=== PATIENT | male | born 1945 | race Caucasian/White ===

== ENCOUNTER 2021-04-27 14:22 | Inpatient (IN) ==
[2021-04-27] MEDS ORDERED: D5% in Water 1,000 ML IVC PRN (18:41)
[2021-04-27] MEDS ORDERED: Naloxone 0.4 MG/ML INJ IVP PRN (18:42)
[2021-04-27] MEDS ORDERED: Dextrose Gel 15 GM/37.5 ML TUBE PO PRN ×2 (20:46)
[2021-04-27] MEDS ORDERED: *HR* Dextrose 50 % in Water (Syg) 50 ML SYRINGE IVP PRN (20:47)
[2021-04-27] MEDS ORDERED: Insulin LISPRO 300 UNITS/3 ML VIAL SUBQ SCH (21:00)
[2021-04-28] MEDS ORDERED: Insulin LISPRO 300 UNITS/3 ML VIAL SUBQ SCH (07:30)
[2021-04-28] MEDS: Multivit/Ca/Min/Fe/FA 1 TAB TABLET PO SCH (09:44)
[2021-04-28] MEDS: Aspirin 81 MG TAB.CHEW PO SCH (09:44)
[2021-04-28] MEDS: amLODIPine 5 MG TABLET PO SCH (09:44)
[2021-04-28] MEDS ORDERED: *HR* Dextrose 50 % in Water (Syg) 50 ML SYRINGE IVP PRN (11:54)
[2021-04-28] MEDS ORDERED: Dextrose Gel 15 GM/37.5 ML TUBE PO PRN ×2 (11:54)
[2021-04-28] MEDS ORDERED: D5% in Water 1,000 ML IVC PRN (11:54)
[2021-04-28] MEDS: Insulin LISPRO 300 UNITS/3 ML VIAL SUBQ SCH ×2 (17:20→21:19)
[2021-04-29] MEDS: *HR* Enoxaparin 40 MG/0.4 ML SYRINGE SQ SCH (05:59)
[2021-04-29 06:17] LABS: Basophils % 0.4 %; Eosinophils # 0.2 K/mcL (0.0-0.6); Eosinophils % 3.3 %; Hematocrit 30.7 % (37.5-50.1); Hemoglobin 10.2 g/dL (12.9-16.9); Immature Granulocytes % 0.6 % (0-4); Lymphocytes # 1.6 K/mcL (0.6-4.6); Lymphocytes % 23.4 %; Mean Corpuscular HGB Conc 33.2 g/dL (31.6-35.5); Mean Corpuscular Hemoglobin 29.8 pg (28.0-33.3); Mean Corpuscular Volume 89.8 fL (83.0-100.0); Mean Platelet Volume 10.1 fL (9.4-12.4); Monocytes # 0.9 K/mcL (0.0-1.3); Monocytes % 13.8 %; Neutrophils # 3.9 K/mcL (1.6-8.9); Platelet Count 247 K/mcL (140-400); Red Blood Count 3.42 M/mcL (4.19-5.50); Red Cell Distribution Width 13.8 % (11.5-14.5); Segmented Neutrophils % 58.5 %; White Blood Count 6.7 K/mcL (4.3-11.1)
[2021-04-29 06:33] LABS: BUN/Creatinine Ratio 13 (6-26); Blood Urea Nitrogen 17 mg/dL (8-23); Calcium 8.9 mg/dL (8.6-10.3); Carbon Dioxide 25 mEq/L (23-29); Chloride 106 mEq/L (98-107); Glucose 146 mg/dL (70-105); Osmolality,Calculated 292 (280-300); Potassium 4.3 mEq/L (3.5-5.1); Sodium 139 mEq/L (136-145); eGFR For African Americans > 60 (> 60); eGFR For Non-African Americans 52 (> 60)
[2021-04-29 09:06] LABS: % Iron Saturation 19 % (20-55); Iron 43 mcg/dL (65-175); Transferrin 158 mg/dL (203-362)
[2021-04-29 09:37] LABS: Folate > 22.3 ng/mL (3.0-16.0); Vitamin B12 323 pg/mL (250-1100)
[2021-04-29] MEDS ORDERED: Acetaminophen 325 MG TABLET PO PRN (10:15)
[2021-04-29] MEDS: Multivit/Ca/Min/Fe/FA 1 TAB TABLET PO SCH (10:16)
[2021-04-29] MEDS: Aspirin 81 MG TAB.CHEW PO SCH (10:17)
[2021-04-29] MEDS: amLODIPine 5 MG TABLET PO SCH (10:17)
[2021-04-29 10:31] LABS: Estimated Average Glucose 177 mg/dl; Hemoglobin A1C 7.8 %
[2021-04-29] MEDS: Insulin LISPRO 300 UNITS/3 ML VIAL SUBQ SCH ×4 (10:42→20:56)
[2021-04-30] MEDS: *HR* Enoxaparin 40 MG/0.4 ML SYRINGE SQ SCH (05:36)
[2021-04-30 06:44] LABS: Basophils % 0.3 %; Eosinophils # 0.2 K/mcL (0.0-0.6); Eosinophils % 3.6 %; Hemoglobin 9.8 g/dL (12.9-16.9); Immature Granulocytes % 0.7 % (0-4); Lymphocytes # 1.7 K/mcL (0.6-4.6); Mean Corpuscular HGB Conc 32.7 g/dL (31.6-35.5); Mean Corpuscular Volume 91.7 fL (83.0-100.0); Mean Platelet Volume 10.2 fL (9.4-12.4); Monocytes # 0.9 K/mcL (0.0-1.3); Platelet Count 240 K/mcL (140-400); Red Blood Count 3.27 M/mcL (4.19-5.50); Red Cell Distribution Width 13.9 % (11.5-14.5); Segmented Neutrophils % 51.4 %; White Blood Count 5.8 K/mcL (4.3-11.1)
[2021-04-30 07:18] LABS: Calcium 8.9 mg/dL (8.6-10.3); Magnesium 1.6 mg/dL (1.6-2.6); Potassium 4.4 mEq/L (3.5-5.1)
[2021-04-30] MEDS: Insulin LISPRO 300 UNITS/3 ML VIAL SUBQ SCH ×3 (08:01→16:43)
[2021-04-30] MEDS: Multivit/Ca/Min/Fe/FA 1 TAB TABLET PO SCH (10:37)
[2021-04-30] MEDS: amLODIPine 5 MG TABLET PO SCH (10:37)
[2021-04-30] MEDS: Aspirin 81 MG TAB.CHEW PO SCH (10:38)
[2021-04-30] MEDS ORDERED: *HR* Dextrose 50 % in Water (Syg) 50 ML SYRINGE IVP PRN ×2 (12:07→14:47)
[2021-04-30] MEDS ORDERED: Dextrose Gel 15 GM/37.5 ML TUBE PO PRN ×4 (12:07→14:47)
[2021-04-30] MEDS ORDERED: D5% in Water 1,000 ML IVC PRN ×2 (12:07→14:47)
[2021-04-30] MEDS ORDERED: 0.9 % Sodium Chloride 1,000 ML IVC SCH (12:15)
[2021-04-30] MEDS ORDERED: Insulin LISPRO 300 UNITS/3 ML VIAL SUBQ SCH ×4 (16:30→21:00)
[2021-04-30] MEDS ORDERED: Insulin DETEMIR 100 UNIT/ML X5UNITS SUBQ SCH (21:00)
[2021-05-01] MEDS: *HR* Enoxaparin 40 MG/0.4 ML SYRINGE SQ SCH (05:29)
[2021-05-01 07:13] LABS: Basophils % 0.3 %; Eosinophils # 0.3 K/mcL (0.0-0.6); Eosinophils % 4.5 %; Hematocrit 30.9 % (37.5-50.1); Hemoglobin 10.1 g/dL (12.9-16.9); Immature Granulocytes % 0.6 % (0-4); Lymphocytes # 1.7 K/mcL (0.6-4.6); Lymphocytes % 27.9 %; Mean Corpuscular HGB Conc 32.7 g/dL (31.6-35.5); Mean Corpuscular Volume 91.7 fL (83.0-100.0); Mean Platelet Volume 9.1 fL (9.4-12.4); Monocytes # 0.9 K/mcL (0.0-1.3); Monocytes % 13.8 %; Neutrophils # 3.3 K/mcL (1.6-8.9); Platelet Count 229 K/mcL (140-400); Red Blood Count 3.37 M/mcL (4.19-5.50); Segmented Neutrophils % 52.9 %; White Blood Count 6.2 K/mcL (4.3-11.1)
[2021-05-01 07:28] LABS: Potassium 4.6 mEq/L (3.5-5.1)
[2021-05-01 08:14] VITALS: BP 156/67; PULSE 62; RESP 16; TEMP 97.6; O2SAT 95
[2021-05-01] MEDS: amLODIPine 5 MG TABLET PO SCH (08:26)
[2021-05-01] MEDS: Multivit/Ca/Min/Fe/FA 1 TAB TABLET PO SCH (08:26)
[2021-05-01] MEDS: Aspirin 81 MG TAB.CHEW PO SCH (08:26)
[2021-05-01] MEDS: Insulin LISPRO 300 UNITS/3 ML VIAL SUBQ SCH ×2 (08:27→12:43)
[2021-05-01] MEDS ORDERED: Insulin DETEMIR 100 UNIT/ML X5UNITS SUBQ SCH (09:00)
[2021-05-03] MEDS ORDERED: Ergocalciferol (VIT D2) 50,000 UNIT (1.25MG) CAP PO SCH (18:00)
== END 2021-05-01 13:33 | disposition other institution (70) ==
LOC: INPPIK
PROVIDERS: ADMIT Family Medicine; ATTEND Family Medicine

== ENCOUNTER 2021-05-01 11:29 | Inpatient (IN) ==
[2021-05-01] MEDS ORDERED: *HR* Dextrose 50 % in Water (Syg) 50 ML SYRINGE IVP PRN (12:41)
[2021-05-01] MEDS ORDERED: D5% in Water 1,000 ML IVC PRN (12:41)
[2021-05-01] MEDS ORDERED: Dextrose Gel 15 GM/37.5 ML TUBE PO PRN ×2 (12:41)
[2021-05-01] MEDS: Insulin LISPRO 300 UNITS/3 ML VIAL SUBQ SCH ×2 (17:24→20:24)
[2021-05-02] MEDS: *HR* Enoxaparin 40 MG/0.4 ML SYRINGE SQ SCH (05:32)
[2021-05-02 08:29] LABS: Calcium 9.2 mg/dL (8.6-10.3); Potassium 4.8 mEq/L (3.5-5.1)
[2021-05-02 09:39] LABS: Hematocrit 32.5 % (37.5-50.1); Hemoglobin 10.5 g/dL (12.9-16.9); Mean Corpuscular HGB Conc 32.3 g/dL (31.6-35.5); Mean Corpuscular Hemoglobin 29.7 pg (28.0-33.3); Mean Corpuscular Volume 92.1 fL (83.0-100.0); Mean Platelet Volume 11.1 fL (9.4-12.4); Neutrophils # 3.4 K/mcL (1.6-8.9); Platelet Count 267 K/mcL (140-400); Red Blood Count 3.53 M/mcL (4.19-5.50); Red Cell Distribution Width 14.1 % (11.5-14.5); Segmented Neutrophils % 53.3 %; White Blood Count 6.3 K/mcL (4.3-11.1)
[2021-05-02 09:40] LABS: Basophils % 0.3 %; Eosinophils # 0.3 K/mcL (0.0-0.6); Eosinophils % 4.4 %; Immature Granulocytes % 0.9 % (0-4); Lymphocytes # 1.7 K/mcL (0.6-4.6); Lymphocytes % 27.5 %; Monocytes # 0.9 K/mcL (0.0-1.3); Monocytes % 13.6 %
[2021-05-02] MEDS: Insulin LISPRO 300 UNITS/3 ML VIAL SUBQ SCH ×4 (10:03→20:18)
[2021-05-02] MEDS: Multivit/Ca/Min/Fe/FA 1 TAB TABLET PO SCH (10:04)
[2021-05-02] MEDS: amLODIPine 5 MG TABLET PO SCH (10:04)
[2021-05-02] MEDS: Aspirin 81 MG TAB.CHEW PO SCH (10:04)
[2021-05-02] MEDS: GlipiZIDE 5 MG TABLET PO SCH ×2 (10:04→17:21)
[2021-05-03] MEDS ORDERED: Ergocalciferol (VIT D2) 50,000 UNIT (1.25MG) CAP PO SCH (09:00)
[2021-05-03] MEDS: *HR* Enoxaparin 40 MG/0.4 ML SYRINGE SQ SCH (09:41)
[2021-05-03] MEDS: GlipiZIDE 5 MG TABLET PO SCH ×2 (09:51→17:09)
[2021-05-03] MEDS: Multivit/Ca/Min/Fe/FA 1 TAB TABLET PO SCH (09:51)
[2021-05-03] MEDS: Aspirin 81 MG TAB.CHEW PO SCH (09:51)
[2021-05-03] MEDS: amLODIPine 5 MG TABLET PO SCH (09:53)
[2021-05-03] MEDS: Insulin LISPRO 300 UNITS/3 ML VIAL SUBQ SCH ×4 (09:55→21:13)
[2021-05-04] MEDS: *HR* Enoxaparin 40 MG/0.4 ML SYRINGE SQ SCH (05:51)
[2021-05-04] MEDS: Insulin LISPRO 300 UNITS/3 ML VIAL SUBQ SCH ×4 (08:58→20:11)
[2021-05-04] MEDS: GlipiZIDE 5 MG TABLET PO SCH ×2 (08:59→17:15)
[2021-05-04] MEDS: Multivit/Ca/Min/Fe/FA 1 TAB TABLET PO SCH (09:00)
[2021-05-04] MEDS: Aspirin 81 MG TAB.CHEW PO SCH (09:00)
[2021-05-04] MEDS: amLODIPine 5 MG TABLET PO SCH (09:00)
[2021-05-05] MEDS: *HR* Enoxaparin 40 MG/0.4 ML SYRINGE SQ SCH (05:15)
[2021-05-05] MEDS: Insulin LISPRO 300 UNITS/3 ML VIAL SUBQ SCH ×4 (07:32→20:13)
[2021-05-05] MEDS: GlipiZIDE 5 MG TABLET PO SCH ×2 (07:59→17:00)
[2021-05-05] MEDS: Aspirin 81 MG TAB.CHEW PO SCH (07:59)
[2021-05-05] MEDS: Multivit/Ca/Min/Fe/FA 1 TAB TABLET PO SCH (08:00)
[2021-05-05] MEDS: amLODIPine 5 MG TABLET PO SCH (08:00)
[2021-05-06] MEDS: *HR* Enoxaparin 40 MG/0.4 ML SYRINGE SQ SCH (05:11)
[2021-05-06] MEDS: Insulin LISPRO 300 UNITS/3 ML VIAL SUBQ SCH ×4 (09:38→21:16)
[2021-05-06] MEDS: Multivit/Ca/Min/Fe/FA 1 TAB TABLET PO SCH (09:41)
[2021-05-06] MEDS: GlipiZIDE 5 MG TABLET PO SCH ×2 (09:41→16:58)
[2021-05-06] MEDS: Aspirin 81 MG TAB.CHEW PO SCH (09:41)
[2021-05-06] MEDS: amLODIPine 5 MG TABLET PO SCH (09:42)
[2021-05-06] MEDS: Acetaminophen 325 MG TABLET PO PRN (09:56)
[2021-05-07] MEDS: *HR* Enoxaparin 40 MG/0.4 ML SYRINGE SQ SCH (05:19)
[2021-05-07] MEDS: Insulin LISPRO 300 UNITS/3 ML VIAL SUBQ SCH ×4 (08:37→19:56)
[2021-05-07] MEDS: GlipiZIDE 5 MG TABLET PO SCH ×2 (09:08→16:32)
[2021-05-07] MEDS: Multivit/Ca/Min/Fe/FA 1 TAB TABLET PO SCH (09:08)
[2021-05-07] MEDS: Aspirin 81 MG TAB.CHEW PO SCH (09:08)
[2021-05-07] MEDS: Acetaminophen 325 MG TABLET PO PRN ×2 (09:10→17:44)
[2021-05-07] MEDS: amLODIPine 5 MG TABLET PO SCH (09:10)
[2021-05-08 05:15] LABS: Basophils % 0.5 %; Eosinophils # 0.2 K/mcL (0.0-0.6); Eosinophils % 3.2 %; Hematocrit 30.9 % (37.5-50.1); Hemoglobin 10.1 g/dL (12.9-16.9); Immature Granulocytes % 1.1 % (0-4); Lymphocytes # 1.9 K/mcL (0.6-4.6); Lymphocytes % 29.2 %; Mean Corpuscular HGB Conc 32.7 g/dL (31.6-35.5); Mean Corpuscular Hemoglobin 30.2 pg (28.0-33.3); Mean Corpuscular Volume 92.5 fL (83.0-100.0); Mean Platelet Volume 10.8 fL (9.4-12.4); Monocytes # 0.8 K/mcL (0.0-1.3); Monocytes % 12.7 %; Neutrophils # 3.5 K/mcL (1.6-8.9); Platelet Count 263 K/mcL (140-400); Red Blood Count 3.34 M/mcL (4.19-5.50); Red Cell Distribution Width 14.5 % (11.5-14.5); Segmented Neutrophils % 53.3 %; White Blood Count 6.6 K/mcL (4.3-11.1)
[2021-05-08 06:17] LABS: Calcium 9.7 mg/dL (8.6-10.3); Potassium 5.2 mEq/L (3.5-5.1)
[2021-05-08] MEDS: *HR* Enoxaparin 40 MG/0.4 ML SYRINGE SQ SCH (08:40)
[2021-05-08] MEDS: Multivit/Ca/Min/Fe/FA 1 TAB TABLET PO SCH (08:41)
[2021-05-08] MEDS: Aspirin 81 MG TAB.CHEW PO SCH (08:41)
[2021-05-08] MEDS: GlipiZIDE 5 MG TABLET PO SCH ×2 (08:41→17:35)
[2021-05-08] MEDS: amLODIPine 5 MG TABLET PO SCH (08:41)
[2021-05-08] MEDS: Insulin LISPRO 300 UNITS/3 ML VIAL SUBQ SCH ×4 (08:41→20:26)
[2021-05-09] MEDS: *HR* Enoxaparin 30 MG/0.3 ML SYRINGE SQ SCH (05:54)
[2021-05-09] MEDS: Insulin LISPRO 300 UNITS/3 ML VIAL SUBQ SCH ×4 (08:05→19:38)
[2021-05-09] MEDS: Aspirin 81 MG TAB.CHEW PO SCH (08:11)
[2021-05-09] MEDS: GlipiZIDE 5 MG TABLET PO SCH ×2 (08:11→16:52)
[2021-05-09] MEDS: amLODIPine 5 MG TABLET PO SCH (08:11)
[2021-05-09] MEDS: Acetaminophen 325 MG TABLET PO PRN (08:11)
[2021-05-09] MEDS: Multivit/Ca/Min/Fe/FA 1 TAB TABLET PO SCH (08:13)
[2021-05-09 09:11] LABS: Calcium 9.8 mg/dL (8.6-10.3); Potassium 5.3 mEq/L (3.5-5.1)
[2021-05-10] MEDS: *HR* Enoxaparin 30 MG/0.3 ML SYRINGE SQ SCH (06:21)
[2021-05-10] MEDS: Insulin LISPRO 300 UNITS/3 ML VIAL SUBQ SCH ×4 (07:17→20:17)
[2021-05-10] MEDS: GlipiZIDE 5 MG TABLET PO SCH ×2 (07:44→16:51)
[2021-05-10] MEDS: Aspirin 81 MG TAB.CHEW PO SCH (07:45)
[2021-05-10] MEDS: Multivit/Ca/Min/Fe/FA 1 TAB TABLET PO SCH (07:45)
[2021-05-10] MEDS: amLODIPine 5 MG TABLET PO SCH (07:45)
[2021-05-10] MEDS ORDERED: Ergocalciferol (VIT D2) 50,000 UNIT (1.25MG) CAP PO SCH (09:00)
[2021-05-10 10:19] LABS: Calcium 9.4 mg/dL (8.6-10.3); Potassium 5.1 mEq/L (3.5-5.1)
[2021-05-11] MEDS: *HR* Enoxaparin 30 MG/0.3 ML SYRINGE SQ SCH (06:29)
[2021-05-11] MEDS: Insulin LISPRO 300 UNITS/3 ML VIAL SUBQ SCH ×4 (07:52→22:39)
[2021-05-11] MEDS: Multivit/Ca/Min/Fe/FA 1 TAB TABLET PO SCH (08:32)
[2021-05-11] MEDS: GlipiZIDE 5 MG TABLET PO SCH ×2 (08:34→16:52)
[2021-05-11] MEDS: amLODIPine 5 MG TABLET PO SCH (08:35)
[2021-05-11] MEDS: Aspirin 81 MG TAB.CHEW PO SCH (08:35)
[2021-05-11 15:27] VITALS: BP 130/65
[2021-05-11] MEDS ORDERED: *HR* Heparin 5,000 UNIT/ML VIAL SQ SCH (18:00)
[2021-05-11] MEDS ORDERED: Nitroglycerin 1 INCH/GM PACKET ONE (18:49)
[2021-05-11] MEDS ORDERED: Aspirin 81 MG TAB.CHEW ONE (18:49)
[2021-05-11] MEDS ORDERED: Aspirin Enteric Coated 81 MG Tablet PO ONE (18:58)
[2021-05-11 19:13] LABS: Basophils % 0.1 %; Eosinophils # 0.3 K/mcL (0.0-0.6); Eosinophils % 3.7 %; Hematocrit 30.4 % (37.5-50.1); Immature Granulocytes % 1.2 % (0-4); Lymphocytes # 2.8 K/mcL (0.6-4.6); Lymphocytes % 34.3 %; Mean Corpuscular HGB Conc 32.9 g/dL (31.6-35.5); Mean Corpuscular Hemoglobin 30.3 pg (28.0-33.3); Mean Corpuscular Volume 92.1 fL (83.0-100.0); Monocytes % 12.1 %; Neutrophils # 3.9 K/mcL (1.6-8.9); Platelet Count 248 K/mcL (140-400); Red Cell Distribution Width 14.4 % (11.5-14.5); Segmented Neutrophils % 48.6 %; White Blood Count 8.1 K/mcL (4.3-11.1)
[2021-05-11] MEDS: Nitroglycerin 1 INCH/GM PACKET TP ONE ×2 (19:18→19:20)
[2021-05-11 19:21] LABS: Heparin anti-factor XA UFH 0.17 IU/mL (0.30-0.70)
[2021-05-11 19:27] VITALS: PULSE 71; RESP 18; TEMP 97.3; O2SAT 98
[2021-05-11] MEDS ORDERED: *HR* Heparin 5,000 UNIT/ML VIAL IVP PRN ×2 (20:14)
[2021-05-11] MEDS ORDERED: *HR* Heparin 5,000 UNIT/ML VIAL IVP ONE (20:14)
[2021-05-11] MEDS ORDERED: Heparin 25,000UNIT/250ML 1/2NS 25,000 UNIT/250 ML IV.SOLN IVC SCH (20:15)
[2021-05-11] MEDS ORDERED: Morphine Sulfate 2 MG/ML SYRINGE IVP PRN (20:16)
[2021-05-11 20:37] LABS: Calcium 9.3 mg/dL (8.6-10.3); Potassium 4.8 mEq/L (3.5-5.1)
[2021-05-11 20:51] LABS: INR 1.2; Prothrombin Time 12.9 Seconds (9.4-12.1)
== END 2021-05-11 23:45 | disposition short-term general hospital (02) | DRG 177 ==
LOC: INPPIK 17:09
PROVIDERS: ADMIT Family Medicine; ATTEND Family Medicine